=== PATIENT | male | born 1990 | race Caucasian/White ===

== ENCOUNTER 2019-01-09 14:49 | Emergency (ER) | payer OTHER ==
[~2019-01-09] VITALS: Ht 177.8 cm; Wt 90.7 kg
[~2019-01-09 14:49] MED LIST: ANUSOL-HC30 GM RC
[2019-01-09] MEDS ORDERED: NORCO 5-325 TA1 EACH PO (15:37)
[2019-01-09] MEDS ORDERED: IBUPROFEN600 MG PO (15:37)
== END 2019-01-09 16:16 | disposition home or self-care (01) ==
LOC: ED 14:49
PROC: 2W3CX1Z Immobilization of Right Lower Arm using Splint (ICD-10-PCS; principal; 2019-01-09)
DX: S62.336A Displaced fracture of neck of fifth metacarpal bone, right hand, initial encounter for closed fracture (principal); Z87.891 Personal history of nicotine dependence; Z88.8 Allergy status to other drugs, medicaments and biological substances; W22.03XA Walked into furniture, initial encounter
CPT/HCPCS: 29125; 73130; 99283-25

== ENCOUNTER 2023-06-21 22:09 | Emergency (ER) | payer SELFPAY ==
[~2023-06-21] VITALS: Ht 177.8 cm; Wt 100.7 kg
[~2023-06-21 22:09] MED LIST changes: +IBUPROFEN600 MG PO; +NORCO 5-325 TA1 EACH PO
[2023-06-21 23:57] VITALS: BP 153/93
--- NOTE | 2023-06-22 12:18 | EKG ---
[facility] [address] [facility] [place], [place] [address] Signed Sinus tachycardia Incomplete right bundle branch block Nonspecific ST abnormality Abnormal ECG No previous ECGs available Confirmed by VINICIO MCMILLAN MD ([id number]) on 06/22/2023 12:18:40 PM Electronically Signed By: VINICIO MCMILLAN 06/22/23 1218 PATIENT NAME: HAILEY SULTANA Electrocardiogram DATE OF : 88 PHYSICIAN: VINICIO MCMILLAN REPORT #: [id number] REPORT IS CONFIDENTIAL AND NOT TO BE RELEASED WITHOUT AUTHORIZATION
== END 2023-06-21 23:59 | disposition home or self-care (01) ==
LOC: ED 22:09
DX: F41.9 Anxiety disorder, unspecified (principal); Z87.891 Personal history of nicotine dependence; Z88.8 Allergy status to other drugs, medicaments and biological substances
CPT/HCPCS: 71045; 93005; 93010; 99283-25